=== PATIENT | female | born 1980 | race Hispanic/Latino ===

== ENCOUNTER 2017-09-15 06:39 | Day surgery (SDC) | payer SELFPAY ==
[~2017-09-15] VITALS: Ht 170.2 cm; Wt 88.9 kg
[~2017-09-15 06:39] MED LIST: BIRTH CONTROL; NO HOME MEDS PER PT; OMEPRAZOLE PO
[2017-09-15] MEDS ORDERED: ANTIBIOTIC (07:03)
[2017-09-15 09:02] VITALS: BP 103/58
== END 2017-09-15 09:10 | disposition home or self-care (01) | DRG 392 ==
LOC: ENDO 06:39 → ORM 08:30 → ENDO 08:30
PROVIDERS: ATTEND Surgery
PROC: 0DB48ZX Excision of Esophagogastric Junction, Via Natural or Artificial Opening Endoscopic, Diagnostic (ICD-10-PCS; principal; 2017-09-15)
PROC: 0DB78ZX Excision of Stomach, Pylorus, Via Natural or Artificial Opening Endoscopic, Diagnostic (ICD-10-PCS; 2017-09-15)
DX: K29.50 Unspecified chronic gastritis without bleeding (principal); K21.0 Gastro-esophageal reflux disease with esophagitis; K44.9 Diaphragmatic hernia without obstruction or gangrene

== ENCOUNTER 2018-03-15 07:37 | Emergency (ER) | payer SELFPAY ==
[~2018-03-15] VITALS: Ht 170.2 cm; Wt 70.0 kg
[~2018-03-15 07:37] MED LIST changes: +ANTIBIOTIC
[2018-03-15] MEDS ORDERED: MOTRIN400 MG PO (08:00)
[2018-03-15] MEDS ORDERED: CYCLOBENZAPR5 MG PO (08:00)
[2018-03-15 08:11] VITALS: BP 110/57
== END 2018-03-15 08:18 | disposition home or self-care (01) | DRG 552 ==
LOC: ED 07:37
DX: M54.42 Lumbago with sciatica, left side (principal)